=== PATIENT | male | born 1990 | race Caucasian/White ===

== ENCOUNTER 2017-08-25 17:13 | Emergency (ER) | payer BC ==
--- NOTE | 2017-08-25 17:35 | EDM.PDOC ---
ED HPI GENERAL MEDICAL PROBLEM - General Stated Complaint: ABDOMINAL /BACK PAIN Time Seen by Provider: 08/25/17 17:34 Source of Information: Reports: Patient History Limitations: Reports: No Limitations - History of Present Illness INITIAL COMMENTS - FREE TEXT/NARRATIVE: HISTORY AND PHYSICAL: History of present illness: Patient is a 27-year-old male who presents to the emergency room with complaints of generalized abdominal pain. He states that it feels like "scratching" to the mid abdomen. Denies any nausea, vomiting, diarrhea/ constipation. Denies any fever, chills, chest pain or shortness of breath. Denies any dysuria or blood noted in his stools. He reports he had 4-6 beers last evening; but denies any frequent/routine alcohol use. Review of systems: As per history of present illness and below otherwise all systems reviewed and negative. Past medical history: As per history of present illness and as reviewed below otherwise noncontributory. Surgical history: As per history of present illness and as reviewed below otherwise noncontributory. Social history: No reported history of drug or alcohol abuse. Family history: As per history of present illness and as reviewed below otherwise noncontributory. Physical exam: General: Well-developed and well-nourished 27-year-old male. Alert and oriented. Nontoxic appearing and in no acute distress. HEENT: Atraumatic, normocephalic, pupils equal and reactive bilaterally, negative for conjunctival pallor or scleral icterus, mucous membranes moist, throat clear, neck supple, nontender, trachea midline. No drooling or trismus noted. No meningeal signs Lungs: Clear to auscultation, breath sounds equal bilaterally, chest nontender. Heart: S1S2, regular rate and rhythm without overt murmur Abdomen: Soft, nondistended, diffuse tenderness/nonspecific in all 4 quadrants. Negative for masses or hepatosplenomegaly. Negative for costovertebral tenderness. Pelvis: Stable nontender. Genitourinary: Deferred. Rectal: Deferred. Skin: Intact, warm, dry. No lesions or rashes noted. Extremities: Atraumatic, negative for cords or calf pain. Neurovascular unremarkable. Neuro: Awake, alert, oriented. Cranial nerves II through XII unremarkable. Cerebellum unremarkable. Motor and sensory unremarkable throughout. Exam nonfocal. Notes: Lab work was completed and is unremarkable. The CT shows appendicolith without his. No bowel obstruction mild splenomegaly. Information shared with the patient. Supportive care measures were reviewed with the patient he voices understanding and denies any questions at this time. Diagnostics: CBC, CMP, amylase, lipase, UA Therapeutics: Normal saline, Toradol Impression: Abdominal Pain Plan: 1. [place] diet for the next 24-48 hours. Advance as tolerated 2. Encourage fluids to prevent dehydration. 3. Follow-up with your primary care provider next week, or sooner as needed. Return to the ED as needed and as discussed. Definitive disposition and diagnosis as appropriate pending reevaluation and review of above. Onset: Today abdominal Pain Score (Numeric/FACES): 7 - Related Data Allergies Allergy/AdvReac Type Severity Reaction Status Date / Time No Known Allergies Allergy Verified 08/25/17 17:28 Home Meds: Home Meds . [No Known Home Meds] 01/14/14 [History] Past Medical History - Past Health History Medical/Surgical History: Denies Medical/Surgical History HEENT History: Reports: None Cardiovascular History: Reports: None Respiratory History: Reports: None Gastrointestinal History: Reports: None Genitourinary History: Reports: None Musculoskeletal History: Reports: None Neurological History: Reports: None Psychiatric History: Reports: None Endocrine/Metabolic History: Reports: None Hematologic History: Reports: None Immunologic History: Reports: None Oncologic (Cancer) History: Reports: None Dermatologic History: Reports: None - Infectious Disease History Infectious Disease History: Reports: Chicken Pox - Past Surgical History Head Surgeries/Procedures: Reports: None HEENT Surgical History: Reports: None Cardiovascular Surgical History: Reports: None Respiratory Surgical History: Reports: None GI Surgical History: Reports: None Male Surgical History: Reports: Vasectomy Endocrine Surgical History: Reports: None Neurological Surgical History: Reports: None Musculoskeletal Surgical History: Reports: None Oncologic Surgical History: Reports: None Dermatological Surgical History: Reports: None Social & Family History - Family History Family Medical History: Noncontributory - Tobacco Use Smoking Status *Q: Never Smoker Second Hand Smoke Exposure: No - Caffeine Use Caffeine Use: Reports: Energy Drinks - Recreational Drug Use Recreational Drug Use: No ED ROS GENERAL - Review of Systems Review Of Systems: ROS reveals no pertinent complaints other than HPI. ED EXAM, GI/ABD - Physical Exam Exam: See Below (See dictation) Course - Vital Signs Last Recorded V/S: Last Vital Signs Temp 100 F 08/25/17 17:28 Pulse 93 08/25/17 17:28 Resp 20 08/25/17 17:28 BP 102/52 L 08/25/17 17:28 Pulse Ox 96 08/25/17 17:28 - Orders/Labs/Meds Orders: Active Orders 24 hr Category Date Time Status Abdomen Pelvis w Cont [CT] Stat Exams 08/25/17 17:37 Taken UA W/MICROSCOPIC [URIN] Stat Lab 08/25/17 19:43 Ordered Labs: Laboratory Tests 08/25/17 08/25/17 08/25/17 Range/Units 17:50 17:50 19:43 WBC 6.61 (4.0-11.0) K/uL RBC 4.87 (4.50-5.90) M/uL Hgb 15.2 (13.0-17.0) g/dL Hct 42.8 (38.0-50.0) % MCV 87.9 (80.0-98.0) fL MCH 31.2 (27.0-32.0) pg MCHC 35.5 (31.0-37.0) g/dL RDW Std Deviation 38.9 (28.0-62.0) fl RDW Coeff of Kaden 12 (11.0-15.0) % Plt Count 162 (150-400) K/uL MPV 10.40 (7.40-12.00) fL Neut % (Auto) 78.1 (48.0-80.0) % Lymph % (Auto) 12.6 L (16.0-40.0) % Curry % (Auto) 8.3 (0.0-15.0) % Eos % (Auto) 0.8 (0.0-7.0) % Baso % (Auto) 0.2 (0.0-1.5) % Neut # (Auto) 5.2 (1.4-5.7) K/uL Lymph # (Auto) 0.8 (0.6-2.4) K/uL Curry # (Auto) 0.6 (0.0-0.8) K/uL Eos # (Auto) 0.1 (0.0-0.7) K/uL Baso # (Auto) 0.0 (0.0-0.1) K/uL Nucleated RBC % 0.0 /100WBC Nucleated RBCs # 0 K/uL Sodium 139 (136-148) mmol/L Potassium 4.0 (3.5-5.1) mmol/L Chloride 104 (98-107) mmol/L Carbon Dioxide 27.3 (21.0-32.0) mmol/L BUN 19 H (7.0-18.0) mg/dL Creatinine 1.3 (0.8-1.3) mg/dL Est Cr Clr Drug Dosing 87.35 mL/min Estimated GFR (MDRD) > 60.0 ml/min Glucose 111 H (74-106) mg/dL Calcium 8.6 (8.5-10.1) mg/dL Total Bilirubin 0.7 (0.2-1.0) mg/dL AST 17 (15-37) IU/L ALT 27 (14-63) IU/L Alkaline Phosphatase 62 (46-116) U/L Total Protein 6.6 (6.4-8.2) g/dL Albumin 4.1 (3.4-5.0) g/dL Globulin 2.5 (2.0-3.5) g/dL Albumin/Globulin Ratio 1.6 (1.3-2.8) Amylase 42 (25-115) U/L Lipase 139 (73-393) U/L Urine Color YELLOW Urine Appearance CLEAR Urine pH 5.0 (5.0-8.0) Ur Specific [place] 1.010 (1.001-1.035) Urine Protein NEGATIVE (NEGATIVE) mg/dL Urine Glucose (UA) NEGATIVE (NEGATIVE) mg/dL Urine Ketones NEGATIVE (NEGATIVE) mg/dL Urine Occult Blood NEGATIVE (NEGATIVE) Urine Nitrite NEGATIVE (NEGATIVE) Urine Bilirubin NEGATIVE (NEGATIVE) Urine Urobilinogen 0.2 (<2.0) EU/dL Ur Leukocyte Esterase NEGATIVE (NEGATIVE) Urine RBC 0-1 (0-2/HPF) Urine WBC 0-1 (0-5/HPF) Ur Epithelial Cells RARE (NONE-FEW) Urine Bacteria FEW (NEGATIVE) Meds: Medications Discontinued Medications Generic Name Dose Route Start Last Admin Trade Name Freq PRN Reason Stop Dose Admin Sodium Chloride 1,000 mls @ 999 mls/hr 08/25/17 17:37 08/25/17 17:52 Normal Saline IV 08/25/17 18:37 999 mls/hr STAT ONE Administration Iopamidol 100 ml 08/25/17 18:51 08/25/17 18:52 Isovue-370 (76%) IVPUSH 08/25/17 18:52 100 ml ONETIME STA Administration Ketorolac Tromethamine 30 mg 08/25/17 17:37 08/25/17 17:52 Toradol IVPUSH 08/25/17 17:38 30 mg ONETIME ONE Administration Departure - Departure Time of Disposition: 19:38 Disposition: Home, Self-Care 01 Clinical Impression: Abdominal pain Qualifiers: Abdominal location: generalized Qualified Code(s): R10.84 - Generalized abdominal pain - Discharge Information Instructions: Abdominal Pain, Adult, [id number] Referrals: Crescencio Cheek MD [Primary Care Provider] - Additional Instructions: The following information is given to patients seen in the emergency department who are being discharged to home. This information is to outline your options for follow-up care. We provide all patients seen in our emergency department with a follow-up referral. The need for follow-up, as well as the timing and circumstances, are variable depending upon the specifics of your emergency department visit. If you don't have a primary care physician on staff, we will provide you with a referral. We always advise you to contact your personal physician following an emergency department visit to inform them of the circumstance of the visit and for follow-up with them and/or the need for any referrals to a consulting specialist. The emergency department will also refer you to a specialist when appropriate. This referral assures that you have the opportunity for follow-up care with a specialist. All of these measure are taken in an effort to provide you with optimal care, which includes your follow-up. Under all circumstances we always encourage you to contact your private physician who remains a resource for coordinating your care. When calling for follow-up care, please make the office aware that this follow-up is from your recent emergency room visit. If for any reason you are refused follow-up, please contact the [facility] Emergency Department at and asked to speak to the emergency department charge nurse. [facility] [address] [place] [id number] 1. [place] diet for the next 24-48 hours. Advance as tolerated 2. Encourage fluids to prevent dehydration. 3. Follow-up with your primary care provider next week, or sooner as needed. Return to the ED as needed and as discussed. - My Orders Last 24 Hours: My Active Orders 08/25/17 17:37 Abdomen Pelvis w Cont [CT] Stat 08/25/17 19:43 UA W/MICROSCOPIC [URIN] Stat - Assessment/Plan Last 24 Hours: My Active Orders 08/25/17 17:37 Abdomen Pelvis w Cont [CT] Stat 08/25/17 19:43 UA W/MICROSCOPIC [URIN] Stat
[2017-08-25] MEDS ORDERED: Ketorolac 30 MG/ML SDV IVPUSH ONE (17:37)
[2017-08-25] MEDS ORDERED: Sodium Chloride 0.9% 1,000 ML IV ONE (17:37)
[2017-08-25 18:21] LABS: CHLORIDE,CL 104 mmol/L (98-107); SODIUM,NA 139 mmol/L (136-148)
[2017-08-25] MEDS ORDERED: Iopamidol 755 Mg/ML 100 ML Bottle IVPUSH STA (18:51)
[2017-08-25 20:33] VITALS: BP 113/61
--- NOTE | 2017-08-26 20:19 | CT ---
EXAM DATE: 08/25/17 PATIENT'S AGE: 27 Patient: DEBBY LINCOLN Facility: [place], [place] Site . Site : 1990 Study: CT Abdomen/Pelvis W CONT [id number]/13/2018 6:57:14 PM Ordering Physician: Doctor Sarkar Final Report: HISTORY: Lower abdominal pain with nausea and vomiting. TECHNIQUE: Intravenous contrast enhanced CT of the abdomen and pelvis. 100 mL of Isovue- 370 intravenous contrast administered. COMPARISON: No prior. FINDINGS: There is no focal liver parenchymal abnormality. No biliary ductal dilatation. Gallbladder is contracted. Mild splenomegaly with the spleen measuring 13.7 cm in size. Adrenal glands are normal. No focal pancreatic abnormality or peripancreatic inflammatory change. Symmetric nephrograms. No renal mass or hydronephrosis. No obstructive urinary calculus. Urinary bladder does not appear overly distended. - No small bowel obstruction. Appendicolith. No excessive dilatation of the appendix or surrounding inflammatory change. No diverticulitis or definite colitis. No abdominal or pelvic fluid collection. No free air. No adenopathy. - No acute bony abnormality. - No consolidation within the lung bases or pleural effusion. IMPRESSION: 1. Appendicoliths without abnormal appendiceal dilatation or surrounding inflammatory change. No acute appendicitis. 2. No bowel obstruction. 3. Mild splenomegaly. Dictated by Seymour Merida MD @ 08/25/2017 7:31:24 PM Please note that all CT scans at this facility use dose modulation, iterative reconstruction, and/or weight-based dosing when appropriate to reduce radiation dose to as low as reasonably achievable. Dictated by: Seymour Merida MD @ 08/25/2017 19:31:31 (Electronic Signature) Report Signed by Proxy. [facility]
== END 2017-08-25 20:35 | disposition home or self-care (01) ==
LOC: MW.ED 17:13
DX: R10.84 Generalized abdominal pain (principal)
CPT/HCPCS: 74177; 80053; 81001; 82150; 83690; 85025; 96361; 96374; 99284; J1885; J7040; Q9967

== ENCOUNTER 2020-12-07 20:13 | Emergency (ER) | payer SELFPAY | END 2020-12-07 21:35 | disposition left against medical advice (07) | LOC: MW.ED 20:13 | DX: Z53.21 Procedure and treatment not carried out due to patient leaving prior to being seen by health care provider (principal) ==

== ENCOUNTER 2022-10-12 18:19 | Emergency (ER) | payer SELFPAY ==
[2022-10-12] MEDS ORDERED: Lidocaine/Epineph/Tetracaine 3 ML Syringe TOP ONE (18:51)
[2022-10-12] MEDS ORDERED: Diphtheria,Pertussis(Acell),Tetanus Vaccine 0.5 ML Syringe IM ONE (18:51)
[2022-10-12 19:39] VITALS: BP 100/55; PULSE 62
== END 2022-10-12 19:37 | disposition home or self-care (01) ==
LOC: MW.ED 18:19
DX: S01.01XA Laceration without foreign body of scalp, initial encounter (principal); Z23 Encounter for immunization; W20.8XXA Other cause of strike by thrown, projected or falling object, initial encounter
CPT/HCPCS: 12002; 90471; 90715; 99283; A9270; 99284